=== PATIENT | female | born 1995 | race Two or more races ===

== ENCOUNTER 2024-03-23 02:07 | Emergency (ER) | payer MEDICAID, OTHER ==
[~2024-03-23] VITALS: Ht 157.5 cm; Wt 118.0 kg
[2024-03-23 02:46] LABS: Basophils # (auto) 0.1 10 ^3/uL (0-0.2); Basophils % (auto) 0.6 % (0.0-2.0); Eosinophils # (auto) 0.2 10 ^3/uL (0-0.8); Eosinophils % (auto) 1.7 % (0.0-7.0); Hematocrit 42.5 % (36.0-46.0); Hemoglobin 14.2 g/dL (12.2-16.2); Lymphocytes % (auto) 16.2 % (10.0-50.0); Mean Corpuscular Hemoglobin 28.5 pg (28.0-32.0); Mean Corpuscular Hgb Conc. 33.3 g/dL (32.0-36.0); Mean Corpuscular Volume 85.6 fL (80.0-100.0); Monocytes # (auto) 0.8 10 ^3/uL (0-1.3); Monocytes % (auto) 6.6 % (0.0-12.0); Neutrophils # (auto) 9.4 10 ^3/uL (1.6-8.6); Neutrophils % (auto) 74.9 % (37.0-80.0); Red Blood Cells 4.97 10^6/uL (4.0-5.20); Red Cell Distribution Width 13.5 % (11.8-14.3); White Blood Cell 12.6 10^3/uL (4.4-10.8)
[2024-03-23 02:58] LABS: Urine Amorphous Crystal MOD /hpf (None Seen); Urine Bacteria FEW /hpf (None Seen); Urine Blood 3+ /uL (Negative); Urine Budding Yeast FEW /hpf (None Seen); Urine Clarity Ex.Turbid (Clear); Urine Color Brown (Yellow); Urine Mucus FEW (None Seen); Urine Protein, UAD 1+ (Negative); Urine Specific Gravity 1.023 (1.001-1.035); Urine Urobilinogen Normal (Negative); Urine WBC 3 /hpf (0 - 5); Urine pH 5.5 (5.0-9.0)
[2024-03-23 03:07] LABS: Alanine Aminotransferase 17 U/L (7-40); Albumin 4.6 g/dL (3.2-4.8); Alkaline Phosphatase 75 U/L (46-116); Anion Gap 11 (5-15); Aspartate Aminotransferase 14 U/L (13-40); BUN/Creatinine Ratio 12.6 (10.0-20.0); Blood Urea Nitrogen 13 mg/dL (9-23); Calcium 9.9 mg/dL (8.7-10.4); Carbon Dioxide 21 mmol/L (20-30); Chloride 108 mmol/L (98-107); Glucose 122 mg/dL (74-106); Lipase 34 U/L (12-53); Potassium 4.2 mmol/L (3.5-5.1); Sodium 140 mmol/L (136-145)
[2024-03-23 03:08] LABS: Bilirubin, Total 0.4 mg/dL (0.2-1.0); Total Protein 7.7 g/dL (5.7-8.2)
[2024-03-23] MEDS: SODIUM CHLORIDE 0.9% 1,000 ML IV ONE (04:14)
[2024-03-23] MEDS: ONDANSETRON HCL 4 MG/2 ML VIAL IV ONE (04:15)
[2024-03-23] MEDS: KETOROLAC TROMETH 30 MG/ML 1ML VIAL IV ONE (04:16)
[2024-03-23] MEDS ORDERED: IBUP-1456 PO (05:04)
[2024-03-23] MEDS ORDERED: ZOFR4T PO (05:04)
[2024-03-23] MEDS ORDERED: TAMS-35 PO (05:04)
[2024-03-23] MEDS ORDERED: ACET-1304 PO (05:04)
[2024-03-23 05:44] VITALS: BP 126/80; PULSE 65; RESP 18; TEMP 98.6; O2SAT 97
== END 2024-03-23 05:45 | disposition home or self-care (01) ==
LOC: ER 02:07
DX: N20.1 Calculus of ureter (principal); R10.2 Pelvic and perineal pain
CPT/HCPCS: 36415; 74176; 80053; 81001; 83690; 84702; 85025; 96361; 96374; 96375; 99285; J1885; J2405; J7030